=== PATIENT | male | born 1975 | race Hispanic/Latino ===

== ENCOUNTER 2017-05-14 16:07 | Outpatient (CLI) | payer OTHER ==
--- NOTE | 2017-05-14 17:57 | MRI ---
MRI LUMBAR SPINE WITHOUT CONTRAST 05/14/17 Multiplanar and multisequential imaging lumbar spine obtained according to protocol. HISTORY: Lumbar pain. radiation to right leg. FINDINGS: The lumbar vertebrae maintain normal height and alignment. Disc space is normally preserved and exhib its normal T2 signal. No significant disc bulge or protrusion seen at L1-2, L2-3, or L3-4. There is mild facet arthrosis at these levels; however, no significant central canal or foraminal stenosis at these levels. At L4-5, mild broad based bulge abuts the anterior thecal sac. Facet arthrosis and hypertrophy. Very mild central canal stenosis. At L5-S1, mild diffuse disc bulge flattens the anterior thecal sac. This does appear to impinge on th e traversing left S1 nerve root. There is mild facet arthrosis with mild central canal stenosis. No s ignificant foraminal stenosis. IMPRESSION: Mild disc bulge at L5-S1 with mild central canal stenosis as described above. There is mild facet art hrosis throughout the lumbar spine as noted above. POS: NANO
== END 2017-05-14 16:08 | disposition home or self-care (01) ==
LOC: MRI 16:07
PROVIDERS: ATTEND Family Medicine
DX: M51.27 Other intervertebral disc displacement, lumbosacral region (principal); M48.062 Spinal stenosis, lumbar region with neurogenic claudication
CPT/HCPCS: 72148

== ENCOUNTER 2020-04-16 19:10 | Emergency (ER) | payer OTHER ==
--- NOTE | 2020-04-16 20:34 | RAD ---
LEFT ELBOW FOUR VIEWS: History: Soft tissue mass elbow x 1 day FINDINGS: Soft tissue swelling adjacent to the olecranon. There is an olecranon spur at the insertion of the tr iceps tendon. This probably represents a bursitis. There is no joint effusion or any underlying bony abnormalities. IMPRESSION: Soft tissue swelling along the olecranon which could indicate an olecranon bursitis. POS: OFF
== END 2020-04-16 20:40 | disposition home or self-care (01) ==
LOC: ERS 19:10
DX: M70.22 Olecranon bursitis, left elbow (principal)